=== PATIENT | male | born 1960 | race Two or more races ===

== ENCOUNTER 2024-06-08 09:43 | Outpatient (RCR) | payer MEDICAID, SELFPAY ==
--- NOTE | 2024-06-08 10:00 | XR_ITS ---
Examination: JOVON, hepatobiliary radioisotope scan Gallbladder ejection fraction study. Date and time of exam: June 08, 2024 1023 hours INDICATIONS: Right upper abdominal pain radiating to the back beginning 2 months ago, abnormal liver enzymes on laboratory examination 2 months ago Technique: 6.0 mCi of 99M Hepatolite administered. Serial imaging then obtained from immediate through 60 minutes. 1.6 mcg selective catheter Kinevac administered for gallbladder ejection fraction study. Findings: Radioisotope activity within the liver is reasonably homogenous. Gallbladder, common bile duct small bowel activity noted Impression: Gallbladder activity Abnormal gallbladder ejection fraction, 41%, normal greater than 35%
== END 2024-06-13 23:59 | disposition home or self-care (01) ==
LOC: SNUC 09:43
PROVIDERS: PCP Student in an Organized Health Care Education/Training Program; Referring Provider Student in an Organized Health Care Education/Training Program; Visit Provider Student in an Organized Health Care Education/Training Program
DX: R93.2 Abnormal findings on diagnostic imaging of liver and biliary tract (principal)
CPT/HCPCS: 78227; A9537; J2805